=== PATIENT | male | born 1960 | race African-American/Black ===

== ENCOUNTER → 2020-08-05 | Emergency (ER) | payer BC, OTHER ==
[~2020-08-05] VITALS: Ht 170.2 cm; Wt 101.6 kg
[~2020-08-05] MED LIST: LISINOPRIL10 MG PO; PIOGLITAZONE30 MG PO; PROVENTIL HFA6.7 G1 INH; ZPAK PO
[2020-08-05 23:15] VITALS: BP 156/88
== END ==
LOC: ER 23:09
DX: M54.12 Radiculopathy, cervical region (principal); F17.210 Nicotine dependence, cigarettes, uncomplicated; Z79.899 Other long term (current) drug therapy